=== PATIENT | female | born 1980 | race Caucasian/White ===

== ENCOUNTER 2020-01-17 02:40 | Day surgery (SDC) | payer BC, OTHER ==
[~2020-01-17] VITALS: Ht 162.6 cm; Wt 76.2 kg
[2020-01-17] VITALS (12 sets, daily range): BP systolic 124–150; BP diastolic 80–107
[2020-01-17] MEDS ORDERED: morphine INJ 10 MG/ML 1ML (SYR OR VIAL) IVP STA (03:01)
[2020-01-17] MEDS ORDERED: ONDANSETRON 4 MG/2 ML (SDV) Z0FRAN IVP ONE (03:15)
[2020-01-17] MEDS ORDERED: IOHEXOL 350 MG/ML 100 ML (OMNIPAQUE 350) VIAL IV ONE (03:15)
[2020-01-17] MEDS ORDERED: NS 100 ML (IVPB) BAG IV ONE (03:15)
[2020-01-17] MEDS ORDERED: HOLD METFORMIN - RECEIVED CONTRAST 20 ML VIAL IV SCH (03:15)
[2020-01-17] MEDS ORDERED: CATHETER FLUSH 10 ML SYR IV PRN (03:15)
[2020-01-17 03:37] LABS: BACTERIA,URINE FEW /HPF; BILIRUBIN,URINE NEGATIVE (NEGATIVE); CLARITY,URINE CLEAR; COLOR,URINE YELLOW; GLUCOSE, URINE (UA) NEGATIVE (NEGATIVE); KETONES,URINE NEGATIVE (NEGATIVE); LEUKOCYTE ESTERASE ,URINE NEGATIVE (NEGATIVE); NITRITE,URINE NEGATIVE (NEGATIVE); PH,URINE 6.5 (5-9); PROTEIN,URINE NEGATIVE (NEGATIVE); WBC,URINE 0-2 /HPF
[2020-01-17 03:38] LABS: HEMATOCRIT 40 % (35-52); HEMOGLOBIN 13.5 G/DL (11.5-16.0); MEAN CORPUSCULAR HEMOGLOBIN 29 PG (25-34); WHITE BLOOD COUNT 9.3 10^3/uL (4.3-11.0)
[2020-01-17 03:39] LABS: BASOPHILS # (AUTO) 0.1 10^3/uL (0.0-0.1); BASOPHILS % (AUTO) 1 % (0-10); EOSINOPHILS # (AUTO) 0.2 10^3/uL (0.0-0.3); EOSINOPHILS % (AUTO) 2 % (0-10); LYMPHOCYTES # (AUTO) 2.1 X 10^3 (1.0-4.0); LYMPHOCYTES % (AUTO) 23 % (12-44); MEAN CORPUSCULAR HGB CONC 34 G/DL (32-36); MEAN CORPUSCULAR VOLUME 86 FL (80-99); MEAN PLATELET VOLUME 9.4 FL (7.4-10.4); MONOCYTES # (AUTO) 0.8 X 10^3 (0.0-1.0); MONOCYTES % (AUTO) 8 % (0-12); NEUTROPHILS % (AUTO) 66 % (42-75); PLATELET COUNT 402 10^3/uL (130-400)
[2020-01-17 03:40] LABS: NEUTROPHILS # (AUTO) 6.2 X 10^3 (1.8-7.8)
[2020-01-17 03:44] LABS: SODIUM 138 MMOL/L (135-145)
[2020-01-17 03:45] LABS: ALANINE AMINOTRANSFERASE 33 U/L (0-55); ALBUMIN 4.2 GM/DL (3.2-4.5); ALKALINE PHOSPHATASE 64 U/L (40-136); BILIRUBIN,TOTAL 0.4 MG/DL (0.1-1.0); BUN/CREATININE RATIO 10; CALCIUM 8.8 MG/DL (8.5-10.1); CARBON DIOXIDE 24 MMOL/L (21-32); CHLORIDE 100 MMOL/L (98-107); CREATININE SERUM 0.69 MG/DL (0.60-1.30); GFR ESTIMATED > 60; GLUCOSE 130 MG/DL (70-105); LIPASE 22 U/L (8-78); POTASSIUM 3.3 MMOL/L (3.6-5.0); TOTAL PROTEIN 7.6 GM/DL (6.4-8.2)
[2020-01-17] MEDS ORDERED: PIPERACILLIN SODIUM/TAZOBACTAM 4.5 GM in NS (IVPB) 100 ML IV ONE (05:00)
--- NOTE | 2020-01-17 05:07 | ED Abdominal Pain ---
General Chief Complaint: Abdominal/GI Problems Stated Complaint: ABD PAIN,BACK PAIN Nursing Triage Note: Patient states that she is having epigastric pain that radiates to her back. Patient also stated that she vomited x2 but is not currently nauseated. Pain began around 00:00 tonight and hasn't gotten any better. Patient had similar episodes on Wednesday and Wednesday. Sepsis Screen: No Definite Risk Source of Information: Patient Exam Limitations: No Limitations History of Present Illness Date Seen by Provider: Jan 17, 2020 Time Seen by Provider: 03:30 Initial Comments Patient is a 39-year-old female who presents with epigastric pain intermittently 3 days. Pain is dull and rated moderate to severe and radiates between shoulder blades. Episodes occur at night in current episode started hours prior to arrival. Associated symptoms included midepigastric tenderness, and vomiting. No fever chills or sweats. No other acute symptoms or complaints. No prior abdominal surgeries. Timing/Duration: 1-2 Days Severity/Quality: Moderate Location: Epigastric Radiation: Back Activities at Onset: Emotional Stress Associated Symptoms: Back Pain Allergies and Home Medications Allergies Coded Allergies: No Known Drug Allergies (Unverified , 01/17/20) Patient Home Medication List Home Medication List Reviewed: Yes Review of Systems Review of Systems Constitutional: see HPI EENTM: See HPI Respiratory: See HPI Cardiovascular: See HPI Gastrointestinal: See HPI Genitourinary: See HPI Musculoskeletal: see HPI Skin: see HPI Endocrine: See HPI Hematologic/Lymphatic: See HPI All Other Systems Reviewed Negative Unless Noted: Yes Past Dazmtwg-Akmwut-Kjnodi Hx Patient Social History Alcohol Use: Denies Use Recreational Drug Use: No Smoking Status: Never a Smoker Recent Foreign Travel: No Contact w/Someone Who Travel: No Recent Infectious Disease Expo: No Physical Abuse: No Sexual Abuse: No Mistreated: No Fear: No Past Medical History Surgeries: Yes Section Respiratory: No Cardiac: No Neurological: No Genitourinary: No Gastrointestinal: No Musculoskeletal: No Endocrine: Yes Hypothyroidsim HEENT: No Cancer: No Psychosocial: No Integumentary: No Physical Exam Vital Signs Vital Signs - First Documented 01/17/20 02:47 Temp 36.6 Pulse 116 Resp 18 B/P (MAP) 184/123 (143) Pulse Ox 98 O2 Delivery Room Air Capillary Refill : Less Than 3 Seconds Height/Weight/BMI Height: '" Weight: lbs. oz. kg; 33.00 BMI Method: General Appearance: mild distress HEENT: PERRL/EOMI, normal ENT inspection Neck: non-tender, supple Respiratory: lungs clear Cardiovascular: normal peripheral pulses, regular rate, rhythm Gastrointestinal: soft, tenderness (midepigastric pain.) Extremities: normal range of motion, non-tender Back: no CVA tenderness Neurologic/Psychiatric: no motor/sensory deficits, alert Skin: normal color, warm/dry Progress/Results/Core Measures Results/Orders Lab Results Laboratory Tests Test 01/17/20 02:48 01/17/20 02:51 Range/Units Urine Color YELLOW Urine Clarity CLEAR Urine pH 6.5 5-9 Urine Specific [place] 1.025 H 1.016-1.022 Urine Protein NEGATIVE NEGATIVE Urine Glucose (UA) NEGATIVE NEGATIVE Urine Ketones NEGATIVE NEGATIVE Urine Nitrite NEGATIVE NEGATIVE Urine Bilirubin NEGATIVE NEGATIVE Urine Urobilinogen 0.2 < = 1.0 MG/DL Urine Leukocyte Esterase NEGATIVE NEGATIVE Urine RBC (Auto) TRACE H NEGATIVE Urine RBC 5-10 H /HPF Urine WBC 0-2 /HPF Urine Squamous Epithelial Cells 5-10 /HPF Urine Crystals NONE /LPF Urine Bacteria FEW H /HPF Urine Casts NONE /LPF Urine Mucus SMALL H /LPF Urine Culture Indicated NO White Blood Count 9.3 4.3-11.0 10^3/uL Red Blood Count 4.66 4.35-5.85 10^6/uL Hemoglobin 13.5 11.5-16.0 G/DL Hematocrit 40 35-52 % Mean Corpuscular Volume 86 80-99 FL Mean Corpuscular Hemoglobin 29 25-34 PG Mean Corpuscular Hemoglobin Concent 34 32-36 G/DL Red Cell Distribution Width 12.5 10.0-14.5 % Platelet Count 402 H 130-400 10^3/uL Mean Platelet Volume 9.4 7.4-10.4 FL Neutrophils (%) (Auto) 66 42-75 % Lymphocytes (%) (Auto) 23 12-44 % Monocytes (%) (Auto) 8 0-12 % Eosinophils (%) (Auto) 2 0-10 % Basophils (%) (Auto) 1 0-10 % Neutrophils # (Auto) 6.2 1.8-7.8 X 10^3 Lymphocytes # (Auto) 2.1 1.0-4.0 X 10^3 Monocytes # (Auto) 0.8 0.0-1.0 X 10^3 Eosinophils # (Auto) 0.2 0.0-0.3 10^3/uL Basophils # (Auto) 0.1 0.0-0.1 10^3/uL Sodium Level 138 135-145 MMOL/L Potassium Level 3.3 L 3.6-5.0 MMOL/L Chloride Level 100 98-107 MMOL/L Carbon Dioxide Level 24 21-32 MMOL/L Anion Gap 14 5-14 MMOL/L Blood Urea Nitrogen 7 7-18 MG/DL Creatinine 0.69 0.60-1.30 MG/DL Estimat Glomerular Filtration Rate > 60 BUN/Creatinine Ratio 10 Glucose Level 130 H 70-105 MG/DL Calcium Level 8.8 8.5-10.1 MG/DL Corrected Calcium 8.6 8.5-10.1 MG/DL Total Bilirubin 0.4 0.1-1.0 MG/DL Aspartate Amino Transf (AST/SGOT) 26 5-34 U/L Alanine Aminotransferase (ALT/SGPT) 33 0-55 U/L Alkaline Phosphatase 64 40-136 U/L Total Protein 7.6 6.4-8.2 GM/DL Albumin 4.2 3.2-4.5 GM/DL Lipase 22 8-78 U/L Serum Test, Qualitative NEGATIVE NEGATIVE My Orders Orders - KONRAD BARKLEY DO Cbc With Automated Diff (01/17/20 03:00) Comprehensive Metabolic Panel (01/17/20 03:00) Lipase (01/17/20 03:00) Urinalysis (01/17/20 03:00) Hcg,Qualitative Serum (01/17/20 03:00) Ct Abdomen/Pelvis W (01/17/20 03:00) Morphine Injection (Morphine Injection (01/17/20 03:01) Ondansetron Injection (Zofran Injectio (01/17/20 03:15) Ed Iv/Invasive Line Start (01/17/20 03:03) Iohexol Injection (Omnipaque 350 Mg/Ml 1 (01/17/20 03:15) Received Contrast (Hold Metformin- Contr (01/17/20 03:15) Sodium Chloride Flush (Catheter Flush Sy (01/17/20 03:15) Ns (Ivpb) (Sodium Chloride 0.9% Ivpb Bag (01/17/20 03:15) Piperacillin Sodium/Tazobactam (Zosyn Vi (01/17/20 05:00) Medications Given in ED Current Medications Medications Dose Ordered Sig/Cam Route Start Time Stop Time Status Last Admin Dose Admin Iohexol 100 ml ONCE ONCE IV 01/17/20 03:15 01/17/20 03:16 DC 01/17/20 03:50 100 ML Ondansetron HCl 4 mg ONCE ONCE IVP 01/17/20 03:15 01/17/20 03:16 DC 01/17/20 03:07 4 MG Piperacillin Sod/ Tazobactam Sod 4.5 gm/Sodium Chloride 100 ml @ 200 mls/hr ONCE ONCE IV 01/17/20 05:00 01/17/20 05:29 01/17/20 05:15 200 MLS/HR Sodium Chloride 10 ml NEEDED PRN IV 01/17/20 03:15 01/17/20 03:50 10 ML Sodium Chloride 100 ml ONCE ONCE IV 01/17/20 03:15 01/17/20 03:16 DC 01/17/20 03:50 100 ML Vital Signs/I&O 01/17/20 02:47 Temp 36.6 Pulse 116 Resp 18 B/P (MAP) 184/123 (143) Pulse Ox 98 O2 Delivery Room Air Blood Pressure Mean: 143 Departure Communication (Admissions) CT findings of acute cholecystitis without pancreatitis or CBD dilatation. IV antibiotics started. Dr. Villa excepts transfer to [facility]. Dr. Encarnacion on-call for general surgery consultation. Impression Primary Impression: Acute cholecystitis Disposition: XF T-[facility] Condition: Stable Admissions Decision to Admit Reason: Admit from ER (General) Decision to Admit/Date: Jan 17, 2020 Time/Decision to Admit Time: 05:00 (Dr. Morgan) Transfer Method of Transfer: EMS Departure-Patient Inst. Referrals: MICHAEL REYNOSO MD (PCP/Family) Primary Care Physician KONRAD BARKLEY DO Jan 17, 2020 05:07
--- NOTE | 2020-01-17 06:28 | Diagnostic Imaging Report ---
PROCEDURE: CT abdomen and pelvis with contrast. TECHNIQUE: Multiple contiguous axial images were obtained through the abdomen and pelvis after administration of intravenous contrast. Auto Exposure Controls were utilized during the CT exam to meet ALARA standards for radiation dose reduction. INDICATION: Epigastric pain COMPARISON: None FINDINGS: The lung bases are clear. The heart is normal in size. The liver demonstrates no focal lesions. There is mild heterogeneity of the liver which may be due to fatty infiltration. Spleen appears normal. The pancreas is normal. The adrenal glands appear normal. The gallbladder is mildly distended with an enhancing mildly thickened wall. The kidneys appear normal with no hydronephrosis. The bowel loops are nondistended without obstruction. The appendix is normal. There is a left adnexal cyst measuring up to 2.4 cm in greatest dimension. Minimal air is seen in the urinary bladder. No acute osseous abnormalities seen. There is a small hemangioma at the L1 vertebral body. IMPRESSION: 1. Mildly distended gallbladder with enhancing mildly thickened wall. This may be due to cholecystitis. If indicated, ultrasound or HIDA scan could be considered. 2. Minimal air in the bladder, please correlate with recent history of instrumentation. 3. Heterogeneity of the liver may be due to fatty infiltration. No significant changes from the preliminary report. Dictated by: Dictated on workstation # [id number]
--- NOTE | 2020-01-17 06:40 | NUR ---
BENJAMIN DEWEY admitted to room 423-1, with an admitting diagnosis of CHOLECYSTITIS, on 01/17/20 from [facility] [place] via EMS, accompanied by EMS STAFF. BENJAMIN DEWEY introduced to surroundings, call light, bed controls, phone, TV, temperature control, lights, meal times, smoking policy, visitor policy, side rail policy, bathrooms and showers. Patient Rights given to patient in the handbook. BENJAMIN DEWEY verbalizes understanding that [facility] is not responsible for the loss or damage to any personal effects or valuables that are kept in the patients posession during their hospitalization. BENJAMIN DEWEY verbalizes understanding of Interdisciplinary Patient Education. Patient and/or family were informed about the Rapid Response Team and its purpose.
[2020-01-17] MEDS ORDERED: NS IV 1000 ML 1,000 ML ONE (06:47)
[2020-01-17] MEDS ORDERED: morphine INJ 4 MG/ML 1 ML (VIAL/SYRINGE) IV PRN (07:15)
[2020-01-17] MEDS ORDERED: ONDANSETRON 4 MG/2 ML (SDV) Z0FRAN IV PRN (07:15)
[2020-01-17] MEDS: NS IV 1000 ML 1,000 ML IV SCH ×2 (08:10→14:56)
--- NOTE | 2020-01-17 09:19 | NUR ---
PT REQUESTING TO BE CONSULTED BY DR BARBA. DR GOMEZ AND MADHAV NOTIFIED
--- NOTE | 2020-01-17 09:40 | NUR ---
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 Weeder offered blessing.
[2020-01-17] MEDS ORDERED: IBUP-2185 PO (10:02)
[2020-01-17] MEDS ORDERED: NORG1TAB15 PO (10:02)
[2020-01-17] MEDS ORDERED: LEVO112T55 PO (10:02)
[2020-01-17] MEDS ORDERED: LORA10TA76 PO (10:02)
--- NOTE | 2020-01-17 10:02 | NUR ---
SPOKE WITH THE PT AND WENT THRU THE EXT MED HISTORY TO COMPLETE THE MED REC ALL PRESCRIPTION MEDS ARE LISTED ON THE EXT MED HISTORY WITH GOOD DATING OTC MEDS: CLARITIN 10MG (PT SAYS THIS IS SCHEDULED AND NOT PRN) IBUPROFEN 200MG PRN
--- NOTE | 2020-01-17 10:06 | Progress Note-Pre Operative ---
Pre-Operative Progress Note H&P Reviewed The H&P was reviewed, patient examined and no changes noted. Date Seen by Provider: Jan 17, 2020 Time Seen by Provider: 10:00 Date H&P Reviewed: Jan 17, 2020 Time H&P Reviewed: 10:00 Pre-Operative Diagnosis: acute cholecystitis RERE BARBA MD Jan 17, 2020 10:05
--- NOTE | 2020-01-17 10:18 | CONSULTATION REPORT ---
DATE OF SERVICE: 01/17/2020 ADMITTING PHYSICIAN: Shanon Morgan MD ATTENDING PRIMARY CARE PHYSICIAN: Dr. Norm Spencer. HISTORY OF PRESENT ILLNESS: The patient is a 39-year-old female known to us. She reports that she has had epigastric as well as right upper abdominal quadrant pain for the past 3 days, which does radiate towards the back. She also did have episodes of nausea and vomiting. Upon further questioning, she reports that she has had milder symptoms before in the past; however, not as severe. A CT scan was performed, which did show a distended gallbladder as well as gallbladder wall thickening consistent with cholecystitis. She does not report any history of gastroesophageal reflux disease nor peptic ulcer disease. PAST MEDICAL HISTORY: Hypothyroid. PAST SURGICAL HISTORY: section. ALLERGIES: No known drug allergies. MEDICATIONS: Levothyroxine 112 mcg daily, Sprintec daily. SOCIAL HISTORY: Negative smoke, negative alcohol. FAMILY HISTORY: Noncontributory. VITAL SIGNS: Temperature 35.9, blood pressure 150/107, pulse 108, respirations 18, pulse ox 98% on room air. REVIEW OF SYSTEMS: She is a well-nourished female currently in no acute distress. She is not experiencing any shortness of breath or difficulty breathing. No chest pain, palpitations, diaphoresis. Intermittent episodes of epigastric as well as right upper abdominal quadrant pain with intermittent nausea as well as vomiting at home; however, none since being admitted. No hematemesis, no coffee ground emesis. No diarrhea, constipation, no red blood per rectum, no dark tarry stools. No fever, chills, no recent inadvertent weight loss. All other review of systems negative. PHYSICAL EXAMINATION: CHEST: Clear. Good breath sounds bilaterally. HEART: Regular, no murmurs. EXTREMITIES: No lower extremity edema, negative Homans sign. HEENT: No scleral icterus. NECK: No cervical lymphadenopathy. ABDOMEN: Soft, nondistended. There is pain in the epigastric region as well as the right upper abdominal quadrant with a positive Valero sign. LABORATORY DATA: WBC 9.3, hemoglobin 13.5, hematocrit 40, platelets 402. BUN 14, creatinine 0.7. Liver function enzymes normal. ASSESSMENT AND PLAN: A 39-year-old female with symptomatic acute on chronic calculus versus acalculous cholecystitis. The natural history of gallbladder disease was explained to the patient and she is in full understanding and would like to proceed with a laparoscopic cholecystectomy, which we will proceed with on this admission. Job ID: [id number] DocumentID: [id number] Dictated Date: 01/17/2020 10:05:26 [employer]2B Managed Service Sales Exec Date: 01/17/2020 10:17:18 Dictated By: RERE BARBA MD
[2020-01-17] MEDS ORDERED: PIPERACILLIN/TAZO 4.5 GM/NS 100 ML IV SCH ×2 (11:00)
[2020-01-17] MEDS ORDERED: HYDR-3817 PO (11:24)
--- NOTE | 2020-01-17 11:25 | Discharge Inst-Surgical ---
D/C Lap Instructions-JAMESON New, Converted, or Re-Newed RX: RX on Chart Follow Up Appt in 2 weeks Activity as tolerated No driving for 24 hours No driving while on pain medications Incentive Spirometry use every 2 hours while awake Regular Diet Symptoms to Report: Fever over 101 degree F, Nausea/Vomiting Infection Signs and Symptoms to report: Increased redness, Foul odor of wound, Increased drainage Bathing instructions: May shower Operative Area Clean/Dry; Keep incision clean/dry If any problems/questions: Contact your physician or go to Emergency Room RERE BARBA MD Jan 17, 2020 11:25
[2020-01-17] MEDS ORDERED: BUP/EPI 0.25% 1:200,000 (MARCAINE) 30 ML VIAL ONE (11:44)
--- NOTE | 2020-01-17 11:48 | History & Physical ---
HPI History of Present Illness: Patient came to ER due to severe epigastric pain radiating to back that has been occurring intermittently just at night the last 3 nights. Has associated fullness and vomiting but without significant nausea. She denies fever, diarrhea, constipation. Source: patient Date seen by provider: Jan 17, 2020 Time Seen by Provider: 10:00 Attending Physician Dilia Morgan MD PCP Norm Spencer MD Consult Date of Admission Jan 17, 2020 at 06:37 Home Medications Home Medications Reviewed patient Home Medication Reconciliation performed by pharmacy medication reconciliations dialysis technician and/or nursing. Patients Allergies have been reviewed. Allergies Coded Allergies: No Known Drug Allergies (Unverified , 01/17/20) NFA-Iflihd-Fyyojy Hx Patient Social History Alcohol Use: Denies Use Recreational Drug Use: No Smoking Status: Never a Smoker Recent Foreign Travel: No Contact w/other who traveled: No Recent Infectious Disease Expo: No Past Medical History PMHx: Hypothyroidism SurgHx: Nerve repair in hand Family Medical History Significant Family History: Diabetes Review of Systems ([facility]) Constitutional: No fever EENTM: No nose congestion Respiratory: No cough, No short of breath Cardiovascular: No chest pain Gastrointestinal: see HPI Genitourinary: No dysuria Musculoskeletal: No joint pain Skin: No rash Psychiatric/Neurological: No Symptoms Reported Reviewed Test Results Reviewed Test Results Lab Laboratory Tests Test 01/17/20 02:48 01/17/20 02:51 Range/Units Urine Color YELLOW Urine Clarity CLEAR Urine pH 6.5 5-9 Urine Specific [place] 1.025 H 1.016-1.022 Urine Protein NEGATIVE NEGATIVE Urine Glucose (UA) NEGATIVE NEGATIVE Urine Ketones NEGATIVE NEGATIVE Urine Nitrite NEGATIVE NEGATIVE Urine Bilirubin NEGATIVE NEGATIVE Urine Urobilinogen 0.2 < = 1.0 MG/DL Urine Leukocyte Esterase NEGATIVE NEGATIVE Urine RBC (Auto) TRACE H NEGATIVE Urine RBC 5-10 H /HPF Urine WBC 0-2 /HPF Urine Squamous Epithelial Cells 5-10 /HPF Urine Crystals NONE /LPF Urine Bacteria FEW H /HPF Urine Casts NONE /LPF Urine Mucus SMALL H /LPF Urine Culture Indicated NO White Blood Count 9.3 4.3-11.0 10^3/uL Red Blood Count 4.66 4.35-5.85 10^6/uL Hemoglobin 13.5 11.5-16.0 G/DL Hematocrit 40 35-52 % Mean Corpuscular Volume 86 80-99 FL Mean Corpuscular Hemoglobin 29 25-34 PG Mean Corpuscular Hemoglobin Concent 34 32-36 G/DL Red Cell Distribution Width 12.5 10.0-14.5 % Platelet Count 402 H 130-400 10^3/uL Mean Platelet Volume 9.4 7.4-10.4 FL Neutrophils (%) (Auto) 66 42-75 % Lymphocytes (%) (Auto) 23 12-44 % Monocytes (%) (Auto) 8 0-12 % Eosinophils (%) (Auto) 2 0-10 % Basophils (%) (Auto) 1 0-10 % Neutrophils # (Auto) 6.2 1.8-7.8 X 10^3 Lymphocytes # (Auto) 2.1 1.0-4.0 X 10^3 Monocytes # (Auto) 0.8 0.0-1.0 X 10^3 Eosinophils # (Auto) 0.2 0.0-0.3 10^3/uL Basophils # (Auto) 0.1 0.0-0.1 10^3/uL Sodium Level 138 135-145 MMOL/L Potassium Level 3.3 L 3.6-5.0 MMOL/L Chloride Level 100 98-107 MMOL/L Carbon Dioxide Level 24 21-32 MMOL/L Anion Gap 14 5-14 MMOL/L Blood Urea Nitrogen 7 7-18 MG/DL Creatinine 0.69 0.60-1.30 MG/DL Estimat Glomerular Filtration Rate > 60 BUN/Creatinine Ratio 10 Glucose Level 130 H 70-105 MG/DL Calcium Level 8.8 8.5-10.1 MG/DL Corrected Calcium 8.6 8.5-10.1 MG/DL Total Bilirubin 0.4 0.1-1.0 MG/DL Aspartate Amino Transf (AST/SGOT) 26 5-34 U/L Alanine Aminotransferase (ALT/SGPT) 33 0-55 U/L Alkaline Phosphatase 64 40-136 U/L Total Protein 7.6 6.4-8.2 GM/DL Albumin 4.2 3.2-4.5 GM/DL Lipase 22 8-78 U/L Serum Test, Qualitative NEGATIVE NEGATIVE Radiology CT abdomen 01/16: IMPRESSION: 1. Mildly distended gallbladder with enhancing mildly thickened wall. This may be due to cholecystitis. If indicated, ultrasound or HIDA scan could be considered. 2. Minimal air in the bladder, please correlate with recent history of instrumentation. 3. Heterogeneity of the liver may be due to fatty infiltration. Physical Exam-([facility]) Physical Exam Vital Signs VS - Last 72 Hours, by Label 01/17/20 01/17/20 01/17/20 01/17/20 02:47 05:36 06:40 08:00 Temp 36.6 36.5 35.9 Pulse 116 112 110 108 Resp 18 18 18 18 B/P (MAP) 184/123 (143) 141/86 138/86 150/107 (121) Pulse Ox 98 98 98 98 O2 Delivery Room Air Room Air Room Air Room Air 01/17/20 10:25 O2 Delivery Room Air Capillary Refill : Less Than 3 SecondsLess Than 3 Seconds General Appearance: WD/WN, no apparent distress Respiratory: lungs clear, normal breath sounds Cardiovascular: regular rate, rhythm, no murmur Gastrointestinal: normal bowel sounds, soft, tenderness (epigastric) Extremities: no pedal edema Neurologic/Psychiatric: alert, normal mood/affect Skin: normal color, warm/dry Assessment/Plan Assessment/Plan Admission Status: Inpatient Order (span 2 midnights) Reason for Inpatient Admission: Cholecystitis need for IV antibiotics and possible surgery (1) Hypothyroidism Status: Chronic Assessment & Plan: Resume home levothyroxine (2) Cholecystitis Status: Acute Assessment & Plan: IV zosyn started, morphine for pain control, surgery consulted, appreciate recommendations (3) DVT prophylaxis Status: Acute Assessment & Plan: No pharmacologic prophylaxis due to possible surgery needed SCDs. Clinical Quality Measures DVT/VTE Risk/Contraindication: Risk Factor Score Per Nursin RFS Level Per Nursing on Admit: 3=High DILIA MORGAN MD Jan 17, 2020 11:48
--- NOTE | 2020-01-17 12:06 | NUR ---
PT TO SURGERY VIA BED
[2020-01-17] MEDS ORDERED: fentaNYL INJECTION 100 MCG/2 ML AMP ONE (12:14)
[2020-01-17] MEDS ORDERED: MIDAZOLAM 2 MG/2 ML (VERSED) VIAL ONE (12:14)
[2020-01-17] MEDS ORDERED: proPOfol 200 MG/20 ML (DIPRIVAN) VIAL IV ONE (12:19)
[2020-01-17] MEDS ORDERED: SEVOFLURANE (ULTANE) 15 ML INHAL SOLN ONE (12:19)
[2020-01-17] MEDS ORDERED: LIDOCAINE PF 2% 5 ML (XYLOCAINE) VIAL ONE (12:19)
[2020-01-17] MEDS ORDERED: ONDANSETRON 4 MG/2 ML (SDV) Z0FRAN ONE (12:19)
[2020-01-17] MEDS ORDERED: LACTATED RINGERS 1,000 ML IV PRN (12:22)
[2020-01-17] MEDS ORDERED: NEOSTIGMINE 3 MG/3 ML VIAL ONE (12:35)
[2020-01-17] MEDS ORDERED: GLYCOPYRROLATE 0.2 MG/ML (ROBINUL) 2 ML VIAL ONE (12:35)
[2020-01-17] MEDS ORDERED: HYDROmorphone 2 MG/ML VIAL (DILAUDID) ONE (12:40)
[2020-01-17] MEDS ORDERED: ROCURONIUM 10 MG/ML 5 ML SYRINGE IV ONE (13:05)
--- NOTE | 2020-01-17 13:13 | Progress Note-Post Operative ---
Post-Operative Progess Note Surgeon (s)/Primary Products Inspectors (s) Surgeon RERE BARBA MD Primary Products Inspectors: tara sorto BUSINESS SYSTEMS CONSULTANT Pre-Operative Diagnosis acute cholecystitis Post-Operative Diagnosis acute calculous cholecystitis. Procedure & Operative Findings Date of Procedure 01/17/20 Procedure Performed/Findings laparoscopic cholecystectomy Anesthesia Type get Estimated Blood Loss Estimated blood loss (mL): minimal Specimens/Packing Specimens Removed gallbladder RERE BARBA MD Jan 17, 2020 13:13
[2020-01-17] MEDS ORDERED: KETOROLAC 30 MG/ML VIAL ONE (13:32)
--- NOTE | 2020-01-17 13:35 | Anesthesia-General Post-Op ---
General Patient Condition Mental Status/LOC: Same as Preop Cardiovascular: Satisfactory Nausea/Vomiting: Absent Respiratory: Satisfactory Pain: Controlled Complications: Absent Post Op Complications Complications None Follow Up Care/Instructions Patient Instructions None needed. Anesthesia/Patient Condition Patient Condition Patient is doing well, no complaints, stable vital signs, no apparent adverse anesthesia problems. No complications reported per nursing. NIKOS LICEA CRNA Jan 17, 2020 13:35
[2020-01-17] MEDS ORDERED: morphine INJ 10 MG/ML 1ML (SYR OR VIAL) IVP ONE ×2 (13:45)
[2020-01-17] MEDS ORDERED: ONDANSETRON 4 MG/2 ML (SDV) Z0FRAN IVP PRN ×2 (13:45)
[2020-01-17] MEDS ORDERED: HYDROmorphone 2 MG/ML VIAL (DILAUDID) IV ONE ×2 (13:45)
--- NOTE | 2020-01-17 14:01 | NUR ---
PT ARRIVED BACK TO FLOOR VIA BED FROM RECOVERY, REPORT RECEIVED FROM LEEANN RHODES
--- NOTE | 2020-01-17 14:07 | OPERATIVE REPORT ---
DATE OF SERVICE: 01/17/2020 ATTENDING PHYSICIAN: Shanon Morgan MD. ATTENDING PRIMARY CARE PHYSICIAN: Dr. Norm Spencer. PREOPERATIVE DIAGNOSIS: Acute cholecystitis. POSTOPERATIVE DIAGNOSIS: Acute calculous cholecystitis. PROCEDURE PERFORMED: Laparoscopic cholecystectomy. SURGEON: Rere Green MD. FOREST ECONOMIST: Logan Pringle APRN. ANESTHESIA: General endotracheal. ESTIMATED BLOOD LOSS: Minimal. FINDINGS: Inflamed and distended gallbladder with thickened gallbladder wall as well as multiple gallstones. DISPOSITION: The patient tolerated the procedure well. INDICATIONS FOR PROCEDURE: The patient is a 39-year-old female known to us. She has had epigastric pain as well as a right upper abdominal quadrant for the past 3 days, which would radiate toward the back. She also had associated nausea and vomiting. Upon further questioning, she has had some milder episodes before in the past; however, not as severe. A CT scan was performed at [facility], which did show a distended gallbladder as well as gallbladder wall thickening consistent with cholecystitis. DESCRIPTION OF PROCEDURE: The patient was brought to the operating room and laid supine on the table. After adequate IV pain and sedative medications and general endotracheal intubation, the abdomen was prepped and draped in a standard surgical fashion. A 0.5% Marcaine with epinephrine was then used to anesthetize the overlying skin in the left upper abdominal quadrant and transverse skin incision was made using a 15 blade. A 0 silk suture was applied to the medial aspect of the incision for retraction and a Veress needle inserted with low opening pressure of 0 mmHg and the abdomen was then insufflated to 15 mmHg pressure. The Veress needle was removed and a 5 mm XL trocar placed followed by a 5 mm 45-degree angle laparoscope visualizing the peritoneal cavity. A four-quadrant abdominal exploration was performed. There was a distended gallbladder as well as omental adhesions towards the fundus of the gallbladder. Under direct visualization, we then proceeded to place a supraumbilical 10 mm port. The skin and peritoneal lining were anesthetized using 0.5% Marcaine with epinephrine and a transverse skin incision was made using a 15 blade. In a similar manner, a right upper abdominal quadrant 5 mm port was placed. The patient was then placed in a reverse Trendelenburg position as well as plane right side up, left side down. The omental adhesions were then taken down using blunt dissection as well as electrocautery on hook instrument. The hepatoduodenal ligament was then opened with blunt dissection as well as electrocautery on hook instrument. The entire critical view of safety was identified including the cystic duct and artery as the only two structures going to the gallbladder as well as the cystic plate behind the proximal gallbladder. A timeout was then taken and the cystic duct and artery were then clipped proximally, distally and cut with EndoShears. The gallbladder was then dissected off the liver bed using electrocautery on the hook instrument with visualization of good hemostasis as well as no leaking ducts of Luschka. The gallbladder was then removed through the 10 mm port site using an EndoCatch bag. The 10 mm port site fascia and peritoneum were then closed under direct visualization using a Cristiano-Noy device and 0 Vicryl suture. The abdomen was desufflated and the remaining ports removed. All skin incisions were closed using 4-0 Monocryl running subcuticular sutures. The wounds were then cleaned and covered with Dermabond. The patient tolerated the procedure well. We will start IV normal pain medication as well as a clear liquid diet. Once she is tolerating clears, has good pain control with oral pain medication and is ambulating well, we will discharge her home. She will be instructed to do no heavy lifting or exertion for the next two weeks. Job ID: [id number] DocumentID: [id number] Dictated Date: 01/17/2020 13:21:17 Joy Operator Date: 01/17/2020 14:07:20 Dictated By: RERE GREEN MD [facility]
[2020-01-17] MEDS: HYDROcodone/APAP 7.5 MG/325 MG (LORTAB, LORCET PLUS) TABLET PO PRN ×2 (15:14→18:48)
--- NOTE | 2020-01-17 16:41 | NUR ---
PT TOLERATING CLEARS AT THIS TIME, REGULAR ORDER FOR DINNER PLACED. 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 NEEDS MET AT THIS TIME, WILL CONTINUE TO MONITOR.
[2020-01-18] MEDS ORDERED: LEVOTHYROXINE 112 MCG (LEVOTHROID) TAB PO SCH (06:30)
== END 2020-01-17 19:00 | disposition other institution (70) ==
LOC: ER FS 02:44 → 4TH 06:37 → UNDOADMIN 06:37 → SDC 06:37 → 4TH 07:24 → SDC 19:00 → UNDODISIN 19:00
PROVIDERS: ATTEND Family Medicine
DX: K80.12 Calculus of gallbladder with acute and chronic cholecystitis without obstruction (principal); E03.9 Hypothyroidism, unspecified; K76.0 Fatty (change of) liver, not elsewhere classified; Z79.899 Other long term (current) drug therapy
CPT/HCPCS: 36415; 74177; 80053; 81000; 83690; 84703; 85025; 88304; 96365; 96375